=== PATIENT | female | born 1970 | race Caucasian/White ===

== ENCOUNTER 2020-07-15 21:26 | Inpatient (IN) | payer BC ==
[~2020-07-15] VITALS: Ht 165.1 cm; Wt 81.6 kg
[~2020-07-15 21:26] MED LIST: AMBIEN CR12.5 MG PO; AUGMENTIN 875-1 EACH PO; CLONAZEPAM1 MG PO; HYDROCODON-ACE1 EAC2 PO; LYRICA200 MG PO; MEDROL DOSEPAK 24 MG PO; OXYBUTYNIN CHLO15 MG PO; PAXIL40 MG PO; PROAIR DIGIHAL90 MCG INH; QUETIAPINE FUM200 MG PO; ROPINIROLE HCL1 MG PO; VISTARIL 50 MG50 MG PO; ZITHROMAX TRI-500 MG PO; ZITHROMAX250 MG PO; ZOFRAN4 MG PO
[2020-07-16] MEDS ORDERED: PREGABALIN100 MG PO (04:45)
[2020-07-16] MEDS ORDERED: QUETIAPINE FUM300 MG PO (04:45)
[2020-07-16] MEDS ORDERED: VITAMIN D21250 MCG PO (04:46)
[2020-07-16] MEDS ORDERED: PAROXETINE HCL30 MG PO (04:47)
[2020-07-16] MEDS ORDERED: IPRAT-ALBUT 0.5-3 ML INH (04:48)
[2020-07-16] MEDS ORDERED: POTASSIUM CHLO10 ME2 PO (04:48)
[2020-07-16] MEDS ORDERED: HYDROXYZINE HCL50 MG PO (04:52)
[2020-07-16] MEDS ORDERED: LYRICA100 MG PO (04:54)
[2020-07-16 06:52] LABS: HEMOGLOBIN 13.1 gm/dl (12.3-15.3); RED BLOOD COUNT 4.62 M/UL (4.00-5.10); WHITE BLOOD COUNT 17.2 K/UL (4.5-11.0)
[2020-07-16 07:35] LABS: BUN/CREATININE RATIO 22 (0-10)
[2020-07-17 05:13] LABS: BORDETELLA PARAPERTUSSIS Not Detected (Not Detectd); BORDETELLA PERTUSSIS Not Detected (Not Detectd); CHLAMYDIA PNEUMONIAE Not Detected (Not Detectd); CORONAVIRUS HKU1 Not Detected (Not Detectd); CORONAVIRUS NL63 Not Detected (Not Detectd); CORONAVIRUS OC43 Not Detected (Not Detectd); CORONOAVIRUS 229E Not Detected (Not Detectd); HUMAN METAPNEUMOVIRUS Not Detected (Not Detectd); HUMAN RHINOVIRUS/ENTEROVIRUS Not Detected (Not Detectd); INFLUENZA A Not Detected (Not Detectd); INFLUENZA B Not Detected (Not Detectd); MYCOPLASMA PNEUMONIAE Not Detected (Not Detectd); PARAINFLUENZA VIRUS 1 Not Detected (Not Detectd); PARAINFLUENZA VIRUS 2 Not Detected (Not Detectd); PARAINFLUENZA VIRUS 3 Not Detected (Not Detectd); PARAINFLUENZA VIRUS 4 Not Detected (Not Detectd); RESPIRATORY SYNCYTIAL VIRUS Not Detected (Not Detectd)
[2020-07-17 05:49] LABS: HEMOGLOBIN 12.3 gm/dl (12.3-15.3); RED BLOOD COUNT 4.48 M/UL (4.00-5.10); WHITE BLOOD COUNT 14.5 K/UL (4.5-11.0)
[2020-07-17 06:08] LABS: BUN/CREATININE RATIO 23 (0-10)
[2020-07-17 06:53] LABS: SARS-CoV-2 NOT DETECTED (Not Detectd)
[2020-07-17 08:13] LABS: IMMUNOGLOBULIN A, QN, SERUM 72 mg/dL (87-352); IMMUNOGLOBULIN M, QN, SERUM 32 mg/dL (26-217)
[2020-07-17 12:13] LABS: IMMUNOGLOBULIN G, QN, SERUM 449 mg/dL (586-1602)
[2020-07-17 13:14] LABS: ANTI-DSDNA ANTIBODIES 1 IU/mL (0-9)
[2020-07-17 15:14] LABS: ATYPICAL PANCA <1:20 titer (Neg:<1:20); CYTOPLASMIC (C-ANCA) <1:20 titer (Neg:<1:20); PERINUCLEAR (P-ANCA) <1:20 titer (Neg:<1:20)
[2020-07-17 16:14] LABS: IMMUNOGLOBULIN G, QN, SERUM 451 mg/dL (586-1602)
[2020-07-18 04:49] LABS: HEMOGLOBIN 12.4 gm/dl (12.3-15.3); RED BLOOD COUNT 4.45 M/UL (4.00-5.10)
[2020-07-18 04:50] LABS: WHITE BLOOD COUNT 7.7 K/UL (4.5-11.0)
[2020-07-18 05:18] LABS: BUN/CREATININE RATIO 22 (0-10)
[2020-07-18] MEDS ORDERED: REQUIP0.25 MG PO (22:29)
[2020-07-19 03:03] LABS: RED BLOOD COUNT 4.35 M/UL (4.00-5.10)
[2020-07-19 03:04] LABS: WHITE BLOOD COUNT 10.8 K/UL (4.5-11.0)
[2020-07-19 03:40] LABS: BUN/CREATININE RATIO 32 (0-10)
[2020-07-20 03:41] LABS: HEMOGLOBIN 11.7 gm/dl (12.3-15.3); RED BLOOD COUNT 4.29 M/UL (4.00-5.10); WHITE BLOOD COUNT 9.8 K/UL (4.5-11.0)
[2020-07-20 03:55] LABS: BUN/CREATININE RATIO 38 (0-10)
--- NOTE | 2020-07-20 11:41 | NUR ---
PATIENT AGREED TO BE TRANSFERRED BY EMS TO [facility]. REPORT CALLED TO MARISA BERNAL PRIOR TO TRANSFER.
[2020-07-23 10:14] LABS: ASPERGILLUS FUMAGATUS IGG Negative (Negative); AUREOBASIDIUM PULLULANS IGG Negative (Negative); MICROPOLYSPORA FAENI IGG Negative (Negative); PIGEON SERUM IGG Negative (Negative); THERMOACTINOMYCES SACCHARI IGG Negative (Negative); THERMOACTINOMYCES VULGARIS IGG Negative (Negative)
== END 2020-07-20 13:23 | disposition short-term general hospital (02) | DRG 545 ==
LOC: M/S 21:26 → PROG CARE 07-16 03:53
PROVIDERS: Internal Medicine; Internal Medicine Pulmonary Disease; Nurse Practitioner Family; ADMIT Internal Medicine
DX: M32.13 Lung involvement in systemic lupus erythematosus (principal); J96.01 Acute respiratory failure with hypoxia; J69.0 Pneumonitis due to inhalation of food and vomit; D83.9 Common variable immunodeficiency, unspecified; J84.9 Interstitial pulmonary disease, unspecified; J84.113 Idiopathic non-specific interstitial pneumonitis; F41.9 Anxiety disorder, unspecified; M32.9 Systemic lupus erythematosus, unspecified; I95.9 Hypotension, unspecified; J45.909 Unspecified asthma, uncomplicated; M79.7 Fibromyalgia; F32.9 Major depressive disorder, single episode, unspecified; Z90.710 Acquired absence of both cervix and uterus; Z88.5 Allergy status to narcotic agent; Z82.49 Family history of ischemic heart disease and other diseases of the circulatory system; Z79.899 Other long term (current) drug therapy; Z20.822 Contact with and (suspected) exposure to COVID-19; G25.81 Restless legs syndrome
CPT/HCPCS: ECHO; 36415; 36600; 70450; 71045; 71275; 80048; 80202; 82550; 82553; 82784; 82785; 82787; 82803; 83735; 83880; 84132; 84484; 85025; 85027; 85652; 86038; 86140; 86225; 86256; 86331; 86602; 86609; 86671; 87040; 87070; 87081; 87205; 87633; 93306; 94640; 94664; 94760; J0456; J0692; J1650; J1885; J2405; J2920; J2930; J3030; J3370; J7030; J7070; Q0177; Q9967

== ENCOUNTER → 2020-07-30 | Outpatient (CLI) | payer BC ==
[~2020-07-30] MED LIST changes: +HYDROXYZINE HCL50 MG PO; +IPRAT-ALBUT 0.5-3 ML INH; +LYRICA100 MG PO; +PAROXETINE HCL30 MG PO; +POTASSIUM CHLO10 ME2 PO; +PREGABALIN100 MG PO; +QUETIAPINE FUM300 MG PO; +REQUIP0.25 MG PO; +VITAMIN D21250 MCG PO
== END ==
LOC: EXRD 10:58
DX: Z87.01 Personal history of pneumonia (recurrent) (principal); J98.4 Other disorders of lung
CPT/HCPCS: 71046

== ENCOUNTER → 2020-09-05 | Outpatient (CLI) | payer BC | LOC: KOH-I 08-29 10:30 | DX: J84.9 Interstitial pulmonary disease, unspecified (principal) | CPT/HCPCS: 71250 ==

== ENCOUNTER → 2020-09-05 | Outpatient (CLI) | payer BC | LOC: HEART 5 11:00 | DX: J84.9 Interstitial pulmonary disease, unspecified (principal) | CPT/HCPCS: 94060; 94729 ==

== ENCOUNTER → 2021-02-05 | Outpatient (CLI) | payer BC | LOC: RAD 17:17 | DX: J22 Unspecified acute lower respiratory infection (principal); J84.9 Interstitial pulmonary disease, unspecified; R91.8 Other nonspecific abnormal finding of lung field | CPT/HCPCS: 71046 ==

== ENCOUNTER → 2021-03-17 | Outpatient (CLI) | payer BC | LOC: EXRD 14:35 | DX: R06.02 Shortness of breath (principal); R91.8 Other nonspecific abnormal finding of lung field | CPT/HCPCS: 71046 ==

== ENCOUNTER → 2021-04-07 | Outpatient (CLI) | payer BC ==
[~2021-04-07] VITALS: Ht 165.1 cm; Wt 81.6 kg
== END ==
LOC: OPSV 10:00
DX: D80.1 Nonfamilial hypogammaglobulinemia (principal)
CPT/HCPCS: 96365; 96366; J1568

== ENCOUNTER → 2021-05-25 | Outpatient (CLI) | payer BC ==
[~2021-05-25] VITALS: Ht 165.1 cm; Wt 81.6 kg
== END ==
LOC: OPSV 05-08 10:00
DX: D80.1 Nonfamilial hypogammaglobulinemia (principal)
CPT/HCPCS: 96365; 96366; J1568

== ENCOUNTER → 2021-07-21 | Outpatient (CLI) | payer BC ==
[~2021-07-21] VITALS: Ht 165.1 cm; Wt 81.6 kg
== END ==
LOC: OPSV 06-22 10:00
DX: D80.1 Nonfamilial hypogammaglobulinemia (principal)
CPT/HCPCS: 96365; 96366; J1568

== ENCOUNTER → 2021-09-21 | Outpatient (CLI) | payer BC | LOC: OPSV 11:00 | DX: D83.9 Common variable immunodeficiency, unspecified (principal) | CPT/HCPCS: 96365; 96375; J1200; J1568; J2930 ==